=== PATIENT | male | born 1995 | race Caucasian/White ===

== ENCOUNTER 2016-10-23 16:34 | Emergency (ER) | payer OTHER ==
[~2016-10-23] VITALS: Ht 162.6 cm; Wt 64.6 kg
[2016-10-23 16:39] VITALS: BP 142/64
[2016-10-23] MEDS ORDERED: KETOROLAC 30 MG/ML VIAL IVP ONE (17:10)
[2016-10-23] MEDS ORDERED: ONDANSETRON 4 MG/2 ML VIAL IVP ONE (17:10)
[2016-10-23] MEDS ORDERED: NACL 0.9% 1,000 ML IV ONE (17:10)
[2016-10-23 17:32] LABS: BASOPHILS # (AUTO) 0.2 K/uL (0.00-0.22); BASOPHILS % (AUTO) 2.1 % (0.0-2.0); EOSINOPHILS # (AUTO) 0.1 K/uL (0-0.4); EOSINOPHILS % (AUTO) 0.9 % (0.0-4.0); HEMOGLOBIN 14.2 g/dL (12.0-18.0); LYMPHOCYTES # (AUTO) 0.8 K/uL (2.0-11.5); LYMPHOCYTES % (AUTO) 8.5 % (20.5-51.1); MEAN CORPUSCULAR HEMOGLOBIN 30 pg (27-31); MEAN CORPUSCULAR HGB CONC 33 g/dL (33-37); MEAN CORPUSCULAR VOLUME 90 fL (80-94); MONOCYTES # (AUTO) 1.2 K/uL (0.8-1.0); MONOCYTES % (AUTO) 13.7 % (1.7-9.3); NEUTROPHILS # (AUTO) 6.6 K/uL (1.8-7.7); NEUTROPHILS % (AUTO) 74.8 % (42.2-75.2); PLATELET COUNT (AUTO) 193 K/uL (140-450); RED CELL DISTRIBUTION WIDTH 12.5 % (11.6-13.7); WHITE BLOOD COUNT (AUTO) 8.9 K/uL (4.8-10.8)
[2016-10-23 17:42] LABS: BARBITURATE, URINE NEG. ng/ml (NEG <=200); BENZODIAZEPINE, URINE NEG. ng/mL (NEG <=200); CANNABINOID, URINE POS. ng/mL (NEG <=50); COCAINE, URINE NEG. ng/mL (NEG <=300); OPIATE, URINE NEG. ng/mL (NEG <=2000); PHENCYCLIDINE SCREEN,URINE NEG. ng/mL (NEG <=25)
[2016-10-23 17:44] LABS: ANION GAP 15.8 (8-16); CARBON DIOXIDE 23.6 mmol/L (21-32); CREATININE 1.1 mg/dL (0.7-1.3); POTASSIUM 3.4 mmol/L (3.5-5.1)
[2016-10-23 18:00] LABS: ALBUMIN 4.3 g/dL (3.4-5.0); THYROID STIMULATING HORMONE 1.02 uIU/mL (0.34-3.74); TOTAL BILIRUBIN 1.1 mg/dL (0.0-1.0)
[2016-10-23 18:01] LABS: APPEARANCE,URINE CLEAR (CLEAR); BILIRUBIN,URINE NEGATIVE (NEGATIVE); BLOOD, URINE TRACE-I (NEGATIVE); COLOR,URINE YELLOW (YELLOW); LEUKOCYTE ESTERASE ,URINE NEGATIVE (NEGATIVE); NITRITE, URINE NEGATIVE (NEGATIVE); UGLUCOSE NEGATIVE (NEGATIVE)
[2016-10-23 18:02] LABS: RBC,URINE 0-5 (RARE) /HPF (0-5); WBC,URINE 0-5 (RARE) /HPF (0-5)
[2016-10-23 18:30] VITALS: BP 107/56
== END 2016-10-23 18:30 | disposition home or self-care (01) ==
LOC: MED 16:34
DX: R07.89 Other chest pain (principal); F41.9 Anxiety disorder, unspecified; K59.00 Constipation, unspecified; F12.10 Cannabis abuse, uncomplicated; Z79.899 Other long term (current) drug therapy
CPT/HCPCS: 36415; 71020; 74000; 80053; 80305; 81001; 83690; 84443; 85025; 93005; 96361; 96374; 96375; 99285; J1885; J2405; J7030

== ENCOUNTER 2016-10-25 16:25 | Inpatient (IN) | payer OTHER ==
[~2016-10-25] VITALS: Ht 165.1 cm; Wt 63.0 kg
[2016-10-25 17:45] VITALS: BP 129/74
--- NOTE | 2016-10-25 18:00 | NUR ---
PATIENT TO BED 4.
--- NOTE | 2016-10-25 18:01 | NUR ---
PT PRESENTS TO ER W/C/O MID ABDOMINAL PAIN & DIARRHEA X2 DAYS. SKIN IS PINK/WARM/DRY; AAOX4 WITH EVEN AND STEADY GAIT; LUNGS CLEAR BL; HR EVEN AND REGULAR; PT DENIES ANY FEVER, CP, SOB, OR COUGH AT THIS TIME; PATIENT STATES PAIN OF 6/10 AT THIS TIME; VSS; PATIENT POSITIONED FOR COMFORT; HOB ELEVATED; BEDRAILS UP X2; BED DOWN. ER MADE AWARE OF PT STATUS. Addendum: 10/25/16 at 1900 by [email or web address] PT STS BLOODY DIARRHEA X TWICE TODAY.
[2016-10-25 18:50] LABS: BASOPHILS # (AUTO) 0.2 K/uL (0.00-0.22); BASOPHILS % (AUTO) 2.7 % (0.0-2.0); EOSINOPHILS % (AUTO) 0.7 % (0.0-4.0); HEMATOCRIT 45.5 % (36-52); HEMOGLOBIN 14.9 g/dL (12.0-18.0); LYMPHOCYTES # (AUTO) 1.9 K/uL (2.0-11.5); LYMPHOCYTES % (AUTO) 27.4 % (20.5-51.1); MEAN CORPUSCULAR HEMOGLOBIN 29 pg (27-31); MEAN CORPUSCULAR HGB CONC 33 g/dL (33-37); MEAN CORPUSCULAR VOLUME 90 fL (80-94); MONOCYTES # (AUTO) 0.5 K/uL (0.8-1.0); MONOCYTES % (AUTO) 7.9 % (1.7-9.3); NEUTROPHILS # (AUTO) 4.3 K/uL (1.8-7.7); NEUTROPHILS % (AUTO) 61.3 % (42.2-75.2); PLATELET COUNT (AUTO) 223 K/uL (140-450); RED BLOOD CELL COUNT(AUTO) 5.09 MIL/uL (4.20-6.10); RED CELL DISTRIBUTION WIDTH 12.6 % (11.6-13.7); WHITE BLOOD COUNT (AUTO) 6.9 K/uL (4.8-10.8)
[2016-10-25 19:05] LABS: ANION GAP 17.8 (8-16); CARBON DIOXIDE 24.3 mmol/L (21-32); POTASSIUM 4.1 mmol/L (3.5-5.1)
[2016-10-25 19:08] LABS: PROTHROMBIN TIME 10.6 secs (10.8-13.4)
[2016-10-25 19:09] LABS: ALBUMIN 4.4 g/dL (3.4-5.0); TOTAL BILIRUBIN 0.8 mg/dL (0.0-1.0)
--- NOTE | 2016-10-25 19:19 | NUR ---
REPORT GIVEN TO HEIDI BURTON
--- NOTE | 2016-10-25 19:22 | NUR ---
PT RESTING IN BED, VSS, ALERT AND ORIENTED. NO S/S OF DISTRESS NOTED AT THE MOMENT.
[2016-10-25] MEDS ORDERED: ONDANSETRON 4 MG/2 ML VIAL IVP PRN (20:05)
[2016-10-25] MEDS ORDERED: ACETAMINOPHEN 325 MG TAB PO PRN (20:05)
[2016-10-25] MEDS ORDERED: KETOROLAC 30 MG/ML VIAL IVP ONE (20:10)
--- NOTE | 2016-10-25 20:26 | NUR ---
Patient will be admitted to care of DR WHITEHEAD. Admited to TELEMETRY. Will go to room 113A. Belongings list completed. Report to HEIDI GEORGE.
[2016-10-25 20:28] LABS: APPEARANCE,URINE CLEAR (CLEAR); BILIRUBIN,URINE NEGATIVE (NEGATIVE); BLOOD, URINE NEGATIVE (NEGATIVE); COLOR,URINE YELLOW (YELLOW); LEUKOCYTE ESTERASE ,URINE NEGATIVE (NEGATIVE); NITRITE, URINE NEGATIVE (NEGATIVE); PH,URINE 5.5 (5.0-9.0); UGLUCOSE NEGATIVE (NEGATIVE)
--- NOTE | 2016-10-25 20:38 | NUR ---
PT TRASFERED TO FLOOR VIA [facility]UR[facility], ACCOMPANIED BY RN AND EMT. PT STABLE, VSS UPON TRASFER.
[2016-10-25 20:39] LABS: BARBITURATE, URINE NEG. ng/ml (NEG <=200); BENZODIAZEPINE, URINE NEG. ng/mL (NEG <=200); CANNABINOID, URINE POS. ng/mL (NEG <=50); COCAINE, URINE NEG. ng/mL (NEG <=300); OPIATE, URINE NEG. ng/mL (NEG <=2000); PHENCYCLIDINE SCREEN,URINE NEG. ng/mL (NEG <=25)
[2016-10-25 20:43] LABS: CHOL/HDL RATIO 5.1 (1-4.5); FREE T4 (FREE THYROXINE) 1.2 ng/dL (0.76-1.46); MAGNESIUM 1.8 mg/dL (1.8-2.4); PHOSPHORUS 3.7 mg/dL (2.5-4.9); THYROID STIMULATING HORMONE 1.86 uIU/mL (0.34-3.74)
--- NOTE | 2016-10-25 20:45 | NUR ---
ADMITTED 21YEARS OLD MALE VIA GURNEY. SEE NURSING ADMISSION ASSESSMENT AND HISTORY. ORIENTED TO ROOM AND UNIT ROUTINES. PLAN OF CARE DISCUSSED WITH PATIENT AND FAMILY MEMBER, VERBALIZED UNDERSTANDING WELL. CALL LIGHT WITHIN REACH.
[2016-10-25] MEDS: DOCUSATE SODIUM 100 MG GELCAP PO SCH (21:00)
[2016-10-25] MEDS: NACL 0.9% 1,000 ML IV SCH (21:37)
[2016-10-26 00:03] VITALS: BP 120/67
--- NOTE | 2016-10-26 00:08 | NUR ---
NO COMPLAINS. EKG DONE. CT OF ABDOMEN/PELVIS DONE. VITAL SIGNS STABLE. AFEBRILE. CALL LIGHT WITHIN REACH.
[2016-10-26 04:15] VITALS: BP 111/69
--- NOTE | 2016-10-26 04:19 | NUR ---
NO COMPLAINS. SLEEPING WELL. EASILY AROUSABLE. VITALS SIGNS STABLE. SCD NOT APPLIED, PATIENT IS AMBULATORY. CALL LIGHT WITHIN REACH.
[2016-10-26 05:51] LABS: BASOPHILS # (AUTO) 0.2 K/uL (0.00-0.22); BASOPHILS % (AUTO) 3.3 % (0.0-2.0); EOSINOPHILS # (AUTO) 0.1 K/uL (0-0.4); EOSINOPHILS % (AUTO) 2.1 % (0.0-4.0); HEMOGLOBIN 13.5 g/dL (12.0-18.0); LYMPHOCYTES # (AUTO) 2.4 K/uL (2.0-11.5); LYMPHOCYTES % (AUTO) 36.6 % (20.5-51.1); MEAN CORPUSCULAR HEMOGLOBIN 30 pg (27-31); MEAN CORPUSCULAR HGB CONC 34 g/dL (33-37); MEAN CORPUSCULAR VOLUME 89 fL (80-94); MONOCYTES # (AUTO) 0.7 K/uL (0.8-1.0); MONOCYTES % (AUTO) 10.3 % (1.7-9.3); NEUTROPHILS # (AUTO) 3.2 K/uL (1.8-7.7); NEUTROPHILS % (AUTO) 47.7 % (42.2-75.2); PLATELET COUNT (AUTO) 190 K/uL (140-450); RED BLOOD CELL COUNT(AUTO) 4.52 MIL/uL (4.20-6.10); RED CELL DISTRIBUTION WIDTH 12.5 % (11.6-13.7); WHITE BLOOD COUNT (AUTO) 6.6 K/uL (4.8-10.8)
[2016-10-26 06:08] LABS: ANION GAP 15.2 (8-16); CARBON DIOXIDE 25.7 mmol/L (21-32); POTASSIUM 3.9 mmol/L (3.5-5.1)
[2016-10-26 06:12] LABS: MAGNESIUM 1.9 mg/dL (1.8-2.4); PHOSPHORUS 3.9 mg/dL (2.5-4.9)
--- NOTE | 2016-10-26 07:22 | NUR ---
ENDORSED CARE AT BEDSIDE WITH FELIPE GORDON, PATIENT IN STABLE CONDITION.
--- NOTE | 2016-10-26 07:26 | NUR ---
RECEIVED PT IN BED. ASLEEP. ALERT ORIENTEDX4. NO SOB NOTED. DENIES ANY PAIN OR DISCOMFORT AT THIS TIME. POSITIVE BOWEL SOUNDS NOTED ON FOUR QUADRANTS. PT AMBULATORY. SAFETY PREACUTION IN PLACE. CALL LIGHT WITHIN REACH.
[2016-10-26 08:00] VITALS: BP 123/66
[2016-10-26] MEDS ORDERED: DICYCLOMINE HCL LIQUID 10 MG/5 ML UDC PO SCH (08:30)
[2016-10-26] MEDS ORDERED: ALUMINUM HYD/MAG/SIMETHICONE 30 ML UDC PO SCH (08:30)
[2016-10-26] MEDS ORDERED: LIDOCAINE VISCOUS 2% 20 ML UDC PO SCH (08:30)
[2016-10-26] MEDS: PANTOPRAZOLE 40 MG INJ VIAL IVP SCH (08:35)
[2016-10-26] MEDS: NACL 0.9% 1,000 ML IV SCH ×2 (08:38→17:25)
[2016-10-26] MEDS: DOCUSATE SODIUM 100 MG GELCAP PO SCH ×2 (08:46→20:41)
--- NOTE | 2016-10-26 11:00 | NUR ---
PT HAD BOWEL MOVEMENT. BROWN IN COLOR, SOFT IN CONSISTENCY, NON- WATERY. MODERATE AMOUNT. NO VISIBLE BLOOD NOTED. SENT TO LAB FOR STOOL CULTURE.
--- NOTE | 2016-10-26 11:30 | NUR ---
DR. RINALDI MADE AWARE OF BOWEL MOVEMENT, SOFT IN CONSISTENCY, NON WATERY, BROWN IN COLOR, MADE AWARE THAT STOOL NOT QUALIFIED FOR C-DIFF.
--- NOTE | 2016-10-26 11:38 | NUR ---
PATIENT HAS BEEN SCREENED AND CATEGORIZED MODERATE NUTRITION RISK. PATIENT WILL BE SEEN WITHIN 3-5 DAYS OF ADMISSION. 10/28/16-10/30/[address]
[2016-10-26 12:00] VITALS: BP 119/52
--- NOTE | 2016-10-26 12:29 | NUR ---
CM NOTE INITIAL REVIEW FAXED TO [facility] / FAX# [phone], C: [phone]
[2016-10-26] MEDS: HYDROcodone/APAP 7.5/325 MG 1 TAB PO PRN (12:54)
[2016-10-26 16:00] VITALS: BP 109/61
--- NOTE | 2016-10-26 16:26 | NUR ---
PT AMBULATING ALONG THE HALLWAY WITH FRIEND. GAIT STEADY. NO SOB NOTED. DENIES ANY PAIN OR DISCOMFORT AT THIS TIME.
--- NOTE | 2016-10-26 19:22 | NUR ---
PT KEPT CLEAN, DRY AND COMFORTABLE. NEEDS ATTENDED ENDORSED TO NEXT SHIFT ON STABLE CONDITION FOR CONTINUITY OF CARE.
--- NOTE | 2016-10-26 19:50 | NUR ---
RECEIVED HANDOFF REPORT FROM AM RN. PATIENT A&O X4. IV SITE PATENT AND INTACT. PATIENT REPORTS 10/05 PAIN WILL MEDICATE ORDERED. PAGED DR. GALVAN REGARDING PAIN. WAITING FOR CALL BACK. NO SIGNS AND SYMPTOMS OF ACUTE DISTRESS NOTED. SAFETY MEASURES ENSURED CALL LIGHT WITHIN REACH. WILL CONTINUE TO MONITOR.
[2016-10-26] MEDS ORDERED: MORPHINE SULFATE 2 MG/ML SYR IVP PRN (20:40)
--- NOTE | 2016-10-26 21:10 | NUR ---
PATIENT REPORTS 9/10 PAIN. MEDICATED ORDERED. NO SIGNS OR SYMPTOMS OF ACUTE DISTRESS NOTED. CALL LIGHT WITHIN REACH. WILL CONTINUE TO MONITOR.
[2016-10-27] VITALS: BP 120/73
--- NOTE | 2016-10-27 00:35 | NUR ---
PATIENT AWAKE WATCHING TV. PATIENT STATES 7/10 PAIN. MD AWARE. NO SIGNS OR SYMPTOMS OF ACUTE DISTRESS. CALL LIGHT WITHIN REACH. WILL CONTINUE TO MONITOR.
--- NOTE | 2016-10-27 02:59 | NUR ---
PATIENT SLEEPING. NO SIGNS OR SYMPTOMS OF ACUTE DISTRESS. CALL LIGHT WITHIN REACH. WILL CONTINUE TO MONITOR.
[2016-10-27] MEDS: NACL 0.9% 1,000 ML IV SCH ×2 (03:40→12:17)
--- NOTE | 2016-10-27 05:30 | NUR ---
PATIENT SLEEPING. NO SIGNS OR SYMPTOMS OF ACUTE DISTRESS. CALL LIGHT WITHIN REACH. WILL CONTINUE TO MONITOR.
[2016-10-27 05:43] LABS: BASOPHILS # (AUTO) 0.3 K/uL (0.00-0.22); BASOPHILS % (AUTO) 3.4 % (0.0-2.0); EOSINOPHILS # (AUTO) 0.1 K/uL (0-0.4); EOSINOPHILS % (AUTO) 1.2 % (0.0-4.0); HEMATOCRIT 37.7 % (36-52); HEMOGLOBIN 13.1 g/dL (12.0-18.0); LYMPHOCYTES # (AUTO) 2.7 K/uL (2.0-11.5); LYMPHOCYTES % (AUTO) 35.6 % (20.5-51.1); MEAN CORPUSCULAR HEMOGLOBIN 31 pg (27-31); MEAN CORPUSCULAR HGB CONC 35 g/dL (33-37); MEAN CORPUSCULAR VOLUME 90 fL (80-94); MONOCYTES # (AUTO) 0.5 K/uL (0.8-1.0); MONOCYTES % (AUTO) 6.9 % (1.7-9.3); NEUTROPHILS # (AUTO) 3.9 K/uL (1.8-7.7); NEUTROPHILS % (AUTO) 52.9 % (42.2-75.2); PLATELET COUNT (AUTO) 175 K/uL (140-450); RED BLOOD CELL COUNT(AUTO) 4.18 MIL/uL (4.20-6.10); RED CELL DISTRIBUTION WIDTH 12.3 % (11.6-13.7); WHITE BLOOD COUNT (AUTO) 7.5 K/uL (4.8-10.8)
[2016-10-27 06:13] LABS: ANION GAP 10.7 (8-16); CARBON DIOXIDE 27.9 mmol/L (21-32); POTASSIUM 4.6 mmol/L (3.5-5.1)
[2016-10-27 06:20] LABS: MAGNESIUM 2.1 mg/dL (1.8-2.4); PHOSPHORUS 3.7 mg/dL (2.5-4.9)
--- NOTE | 2016-10-27 07:17 | NUR ---
GAVE HANDOFF REPORT TO AM RN. PATIENT REMAINS STABLE
--- NOTE | 2016-10-27 07:22 | NUR ---
REPORT RECEIVED FROM LAYER OUT NURSE, PT RESTING QUIETLY IN NAD, AAOX3, RESP EVEN UNLABORED, SKIN WARM DRY COLOR WNL, PT DENIES PAIN OR DISCOMFORT, PLAN OF CARE DISCUSSED, PT VOICES NO IMMEDIATE NEEDS, SAFETY MEASURES IN PLACE, WILL CONTINUE TO MONITOR.
[2016-10-27 08:00] VITALS: BP 104/60
[2016-10-27] MEDS: DOCUSATE SODIUM 100 MG GELCAP PO SCH (08:16)
[2016-10-27] MEDS: PANTOPRAZOLE 40 MG INJ VIAL IVP SCH (08:16)
[2016-10-27] MEDS: HYDROcodone/APAP 7.5/325 MG 1 TAB PO PRN ×2 (08:17→12:07)
--- NOTE | 2016-10-27 10:34 | NUR ---
PT UP TO BATHROOM WITH STEADY GAIT, PT REPORTS MOD AMOUNT OF SOFT STOOL, NO FURTHER SPECIMEN COLLECTION NEEDED PER DR ESPINOZA, PT REPORTS SMALL AMOUNT OF BLOOD ON TOILET PAPER WHEN WIPING BUT NO VISIBLE BLOOD ON STOOL.
--- NOTE | 2016-10-27 12:09 | NUR ---
PT REPORTS RECTUM PAIN IS BACK, MEDICATED WITH NORCO PER ORDER.
--- NOTE | 2016-10-27 13:13 | NUR ---
FAXED CONCURRENT REVIEW TO [facility] [phone] PHONE [phone]
[2016-10-27] MEDS ORDERED: IBUP-2213 PO (13:36)
[2016-10-27] MEDS ORDERED: ONDA4TAB PO (13:36)
[2016-10-27] MEDS ORDERED: [UNRECOGNIZED DRUG - CODE] RC (13:36)
--- NOTE | 2016-10-27 15:20 | NUR ---
DISCHARGE INSTRUCTION AND RX INFO GIVEN AND EXPLAINED TO PT, PT VERBALIZED FULL UNDERSTANDING, PT TO F/U WITH DR FERREIRA ON 11/01/2016, PT UP OUT OF BED WITHOUT PROBLEM, AMBULATES WITH STEADY GAIT, IV DC'D CATH TIP INTACT, BLEEDING CONTROLLED, DC HOME NOW.
== END 2016-10-27 15:20 | disposition home or self-care (01) | DRG 249 ==
LOC: MED 16:25 → MTU 20:06
PROVIDERS: ADMIT Family Medicine; ATTEND Family Medicine
DX: A08.4 Viral intestinal infection, unspecified (principal); E87.2 Acidosis; N20.0 Calculus of kidney; F12.10 Cannabis abuse, uncomplicated; K64.8 Other hemorrhoids; K60.2 Anal fissure, unspecified
CPT/HCPCS: 36415; 71010; 80048; 80053; 80305; 81003; 82150; 82272; 83036; 83605; 83690; 83735; 83880; 84100; 84439; 84443; 84484; 85025; 85610; 85730; 87040; 87045; 87081; 87086; 89055; 93005; 96374; 99285; C9113; J1885; J2270; J7030; Q0092

== ENCOUNTER 2018-06-06 07:39 | Emergency (ER) | payer OTHER ==
[~2018-06-06] VITALS: Ht 165.1 cm; Wt 72.7 kg
[~2018-06-06 07:39] MED LIST: IBUP-2213 PO; ONDA4TAB PO; [UNRECOGNIZED DRUG - CODE] RC
[2018-06-06 07:47] VITALS: BP 135/87
--- NOTE | 2018-06-06 07:55 | NUR ---
PT AMB TO BED 12
--- NOTE | 2018-06-06 08:00 | NUR ---
22Y/M BIB SELF WITH C/O COUGH, SORE THROAT, STUFFY & RUNNY NOSE X3 DAYS. N/V 1 EPISODE X THIS AM. + SWELLING, + REDNESS PT IS AAOX4, VSS, BED DOWN, BEDRAIL UP X 1, ER MD AWARE AND NOTIFIED OF PT STATUS. MED HX; DENIES
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
[2018-06-06] MEDS ORDERED: DEXAMETHASONE 10 MG/ML VIAL IM ONE (09:45)
--- NOTE | 2018-06-06 10:00 | NUR ---
Paula escalera in [facility] - 06/06/18 at 1113 by [place] REPORT GIVEN TO MARILEE GORDON
[2018-06-06 10:40] VITALS: BP 133/82
--- NOTE | 2018-06-06 11:36 | NUR ---
Patient discharged with v/s stable. Written and verbal after care instructions given and explained. Patient alert, oriented and verbalized understanding of instructions. Ambulatory with steady gait. All questions addressed prior to discharge. ID band removed. Patient advised to follow up with PMD. Rx of IBU, COUGH MEDS WITH COD given. Patient educated on indication of medication including possible reaction and side effects. Opportunity to ask questions provided and answered.
== END 2018-06-06 11:36 | disposition home or self-care (01) ==
LOC: MED 07:39
DX: J02.9 Acute pharyngitis, unspecified (principal); R05 Cough; R11.2 Nausea with vomiting, unspecified; R07.89 Other chest pain; F17.210 Nicotine dependence, cigarettes, uncomplicated; F12.90 Cannabis use, unspecified, uncomplicated; Z79.1 Long term (current) use of non-steroidal anti-inflammatories (NSAID); Z79.899 Other long term (current) drug therapy
CPT/HCPCS: 87081; 96372; 99283; J1100

== ENCOUNTER 2018-11-15 23:47 | Emergency (ER) | payer OTHER ==
[~2018-11-15] VITALS: Ht 165.1 cm; Wt 63.5 kg
[2018-11-15 23:54] VITALS: BP 145/87
--- NOTE | 2018-11-15 23:57 | NUR ---
PT AMBULATED TO LOBBY. PROVIDING URINE.
--- NOTE | 2018-11-16 01:54 | NUR ---
PT AMBULATED TO ER BED 05
--- NOTE | 2018-11-16 01:55 | NUR ---
23/M PRESENTED TO ED C/O LEFT FLANK PAIN RADIATING TO MID ABD, FREQUENT URINATION, PAINFUL URINATION X3 DAYS. SHARP/TIGHT PAIN /. +N -V +D. NO FEVER. STATES TO HAVE THE CHILLS. PT SAYS HE TOOK TYLENOL PRIOR TO ARRIVING TO ED BUT NOT EFFECTIVE. DENIES PAST MED HX, RX AND ALLERGIES. WILL CONTINUE TO MONITOR.
[2018-11-16] MEDS ORDERED: NACL 0.9% 1,000 ML IV ONE (02:20)
[2018-11-16] MEDS ORDERED: KETOROLAC 30 MG/ML VIAL IVP ONE (02:30)
--- NOTE | 2018-11-16 02:30 | NUR ---
IV ESTABLISHED. L AC 20G. TOLERATED WELL. UA COLLECTED. WILL CONTINUE TO MONITOR.
[2018-11-16 02:44] LABS: BASOPHILS % (AUTO) 0.5 % (0.0-2.0); EOSINOPHILS # (AUTO) 0.1 K/uL (0-0.4); HEMATOCRIT 44.8 % (36-52); HEMOGLOBIN 15.5 g/dL (12.0-18.0); LYMPHOCYTES # (AUTO) 2.9 K/uL (2.0-11.5); LYMPHOCYTES % (AUTO) 31.5 % (20.5-51.1); MEAN CORPUSCULAR HEMOGLOBIN 31 pg (27-31); MEAN CORPUSCULAR HGB CONC 35 g/dL (33-37); MEAN CORPUSCULAR VOLUME 90.3 fL (80-94); MONOCYTES # (AUTO) 0.7 K/uL (0.8-1.0); MONOCYTES % (AUTO) 7.3 % (1.7-9.3); NEUTROPHILS # (AUTO) 5.4 K/uL (1.8-7.7); NEUTROPHILS % (AUTO) 59.7 % (42.2-75.2); PLATELET COUNT (AUTO) 245 K/uL (140-450); RED BLOOD CELL COUNT(AUTO) 4.96 MIL/uL (4.20-6.10); RED CELL DISTRIBUTION WIDTH 13.3 % (11.6-13.7)
[2018-11-16 02:53] LABS: ANION GAP 12.2 (8-16); CARBON DIOXIDE 28.5 mmol/L (21-32); CREATININE 0.9 mg/dL (0.7-1.3); POTASSIUM 3.7 mmol/L (3.5-5.1)
[2018-11-16 02:59] LABS: ALBUMIN 4.5 g/dL (3.4-5.0); TOTAL BILIRUBIN 0.5 mg/dL (0.0-1.0)
--- NOTE | 2018-11-16 03:00 | NUR ---
PT LEFT TO X RAY VIA WHEELCHAIR
--- NOTE | 2018-11-16 03:18 | NUR ---
PT BACK FROM XRAY
[2018-11-16 03:38] VITALS: BP 145/87
== END 2018-11-16 03:38 | disposition home or self-care (01) ==
LOC: MED 23:47
DX: R10.9 Unspecified abdominal pain (principal); R19.7 Diarrhea, unspecified; J45.909 Unspecified asthma, uncomplicated; Z79.899 Other long term (current) drug therapy
CPT/HCPCS: 36415; 74022; 80053; 81002; 85025; 96361; 96374; 99284; J1885

== ENCOUNTER 2018-12-27 19:01 | Emergency (ER) | payer OTHER ==
[~2018-12-27] VITALS: Ht 165.1 cm; Wt 69.5 kg
[2018-12-27 19:10] VITALS: BP 129/90
--- NOTE | 2018-12-27 19:12 | NUR ---
23/M PRESENTED TO ED WITH C/O PERSONAL REASONS. PT STATES HE DOES NOT FEEL COMFORTABLE WITH DISCLOSING INFORMATION WITH ME, STATES TO PREFER TO TALK TO THE ERMD. NO PAIN REPORTED AT THIS TIME. VSS. EVEN UNLABORED BREATHING. SITTING CALM IN BED WITH NO SIGNS OF DISTRESS.
--- NOTE | 2018-12-27 19:12 | NUR ---
TO LOBBY A/W BED AMBULATORY
[2018-12-27] MEDS ORDERED: AZITHROMYCIN 250 MG TAB PO ONE (22:00)
[2018-12-27] MEDS ORDERED: cefTRIAXone 250 MG in LIDOCAINE MPF 1% 0.9 ML IM ONE (22:00)
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
--- NOTE | 2018-12-27 22:27 | NUR ---
PT AMBULATED TO BED 1.
[2018-12-27 22:48] LABS: BASOPHILS % (AUTO) 0.3 % (0.0-2.0); EOSINOPHILS % (AUTO) 0.5 % (0.0-4.0); HEMATOCRIT 45.2 % (36-52); HEMOGLOBIN 15.3 g/dL (12.0-18.0); LYMPHOCYTES # (AUTO) 2.3 K/uL (2.0-11.5); LYMPHOCYTES % (AUTO) 27.7 % (20.5-51.1); MEAN CORPUSCULAR HEMOGLOBIN 31 pg (27-31); MEAN CORPUSCULAR HGB CONC 34 g/dL (33-37); MEAN CORPUSCULAR VOLUME 90.3 fL (80-94); MONOCYTES # (AUTO) 0.5 K/uL (0.8-1.0); MONOCYTES % (AUTO) 6.5 % (1.7-9.3); NEUTROPHILS # (AUTO) 5.4 K/uL (1.8-7.7); PLATELET COUNT (AUTO) 255 K/uL (140-450); RED CELL DISTRIBUTION WIDTH 13.1 % (11.6-13.7); WHITE BLOOD COUNT (AUTO) 8.3 K/uL (4.8-10.8)
[2018-12-27 23:15] LABS: ANION GAP 14.6 (8-16); CARBON DIOXIDE 28.8 mmol/L (21-32); POTASSIUM 3.4 mmol/L (3.5-5.1)
[2018-12-27 23:16] LABS: ALBUMIN 4.5 g/dL (3.4-5.0); TOTAL BILIRUBIN 0.8 mg/dL (0.0-1.0)
[2018-12-27 23:27] LABS: CREATININE 0.9 mg/dL (0.7-1.3)
[2018-12-28 01:10] VITALS: BP 121/81
--- NOTE | 2018-12-28 01:10 | NUR ---
PT DICHARGED WITH PAPERWORK. RX TRUVADA, EDUCATED PT REGARDING MEDICATION AND S/E. EDUCATED PT REGARDING D/C DIAGNOSIS AND INSTRUCTIONS. PT VERBALIZED UNDERSTANDING OF TEACHING. TOLD PT TO FOLLOW UP WITH PCP AND WHEN TO RETURN TO ED. PT VSS. ALL QUESTIONS ANSWERED.
[2018-12-29 10:22] LABS: HEPATITIS A ANTIBODY IGM Negative (Negative); HEPATITIS B CORE AB TOTAL Negative (Negative); HEPATITIS B SURFACE ANTIBODY Non Reactive (.); HEPATITIS B SURFACE ANTIGEN Negative (Negative)
== END 2018-12-28 01:10 | disposition home or self-care (01) ==
LOC: MED 19:01
DX: T74.21XA Adult sexual abuse, confirmed, initial encounter (principal); J45.909 Unspecified asthma, uncomplicated; Z79.899 Other long term (current) drug therapy; Z79.1 Long term (current) use of non-steroidal anti-inflammatories (NSAID)
CPT/HCPCS: 36415; 80053; 85025; 86703; 86704; 86706; 86708; 86709; 86803; 87340; 96372; 99283; J0696; J2001